=== PATIENT | male | born 1935 | race Caucasian/White ===

== ENCOUNTER → 2023-07-06 | Outpatient (REF) | payer MEDICARE, OTHER, SELFPAY ==
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
[2023-07-06 06:30] LABS: Absolute Lymphocyte Count 1.61 X10^3/uL (0.83-4.51); Absolute Neutrophil Count 4.6 X10^3/uL (2.0-7.7); Basophil# 0.02 X10^3/uL; Basophil% 0.3 % (0-1); Eosinophil# 0.42 X10^3/uL; Eosinophils% 5.6 % (0-5); Hematocrit 33.9 % (40-54); Hemoglobin 10.8 g/dL (13.0-16.5); Lymphocyte # 1.61 X10^3/ul (0.83-4.51); Lymphocyte % 21.4 % (19-41); Mean Corp Hgb Conc 31.9 g/dL (32-36); Mean Corpuscular Hgb 32.4 pg (27.0-32.0); Mean Corpuscular Volume 101.8 fL (80-94); Mean Platelet Vol. 9.9 fl (6.2-12.0); Monocyte# 0.83 X10^3/uL; NRBC Flagged by Analyzer 0 % (0-5); Neutrophil # 4.63 X10^3/uL (2.7-7.7); Neutrophil % 61.6 % (47-70); Platelet Count 241 K/mm3 (150-450); RBC Distribution Width CV 13.3 % (11.6-14.6); RBC Distribution Width SD 50.4 fl (35.1-43.9); Red Blood Count 3.33 M/mm3 (4.6-6.2); White Blood Count 7.5 K/mm3 (4.4-11.0)
[2023-07-06 07:08] LABS: Anion Gap 1 (5-15); BUN 43 mg/dL (7-18); BUN/Creat Ratio 31.4 RATIO (10-20); Calcium,Total 9.7 mg/dL (8.5-10.1); Chloride 107 mmol/L (98-107); Creatinine, Serum 1.37 mg/dL (0.70-1.30); EST Glomerular Filtration Rate 52 mL/min (>60); Est Glom Filt Rate - Afr Amer 63 mL/min (>60); Glucose 130 mg/dL (74-106); Potassium 4.2 mmol/L (3.5-5.1); Sodium Level 137 mmol/L (136-145)
== END ==
LOC: OLS.WHLTSB 05:54
PROVIDERS: PCP Family Medicine; Visit Provider Internal Medicine
DX: S22.41XD Multiple fractures of ribs, right side, subsequent encounter for fracture with routine healing (principal); H61.22 Impacted cerumen, left ear; J91.8 Pleural effusion in other conditions classified elsewhere
CPT/HCPCS: 36415; 80048; 85025

== ENCOUNTER → 2023-07-13 | Outpatient (REF) | payer MEDICARE, OTHER, SELFPAY ==
--- OUTSIDE RECORDS SUMMARY | 2023-07-13 04:25 | XMS RPT_ITS | CCD ---
Author Name Unknown Address [address] [place] [address] Organization [facility] Care Team Providers Care Service Control Operator Name Role Phone Unavailable Primary Care Provider Unavailabl e Results Test Name Value Interpretation Reference Range Facil ity Encounters Encounter Date Encounter Type Care Provider Facility Start: 09-23-2021 End: 09-23-2021 Subsequent hospital visit by physician Cindy Gomez DO Work Phone: [facility] Payers Date Payer Category Payer Unknown MMO MMO TRADITIO NAL [id number] 1999-Present [phone] [address] [place] [address] Indemnity [id number] Social History Date Type Detail Facility Tobacco smoking stat [facility] Tobacco smoking consumption unknown [facility] Start: 1935 Sex Assigned At Not on file C [facility] Clinical Note 09-23-2021 Note Date & Type [...] Metropolol, Pantoprazole, Pioglitazone, Plavix, Glyburide, Cyclobenzapr, Saw [place], CoQ10 Demographics: Age: 85Y Gender: Male Primary Language: Mauritian Preferred Language: Mauritian Screening for COVID-19 Does the patient/client present [...] with anyone with a confirmed or suspected [facility] PATIENT NAME: SANTIAGO PARRA [address] Post MEDICAL REC #: [id number] [place] [address] ADMIT DATE: SERVICE DATE: 09/23/21 Occupational Therapy [...] to get himself light meals, using the bond underwriter, setting the table while assist still needed [...] work currently if asked/requested; he plays the [employer] and takes lessons weekly, he has shown his [employer] tractor for years while last time at the [facility] in 2018 or 2019 (not sure of year) Driving History: Driving for: 70 years. 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 History of Accidents: Patient [...] Pain: Patient currently without complaints of pain. [facility] PATIENT NAME: SANTIAGO PARRA [address] Post MEDICAL REC #: [id number] (more content not included)... [facility] [place] Summary Purpose Family History No Family History [...] or prosecute any alcohol or drug abuse patient.[facility] (unrecognized sect ion and content) No [...] BE BASED ON THE PRIMARY CLINICAL RECORDS. [employer] [facility]. provides no warranty or guarantee of the accuracy or completeness of information in this document.
[2023-07-13 06:19] LABS: Absolute Lymphocyte Count 1.47 X10^3/uL (0.83-4.51); Absolute Neutrophil Count 2.9 X10^3/uL (2.0-7.7); Basophil# 0.02 X10^3/uL; Basophil% 0.4 % (0-1); Hematocrit 29.9 % (40-54); Hemoglobin 9.3 g/dL (13.0-16.5); Lymphocyte # 1.47 X10^3/ul (0.83-4.51); Lymphocyte % 26.5 % (19-41); Mean Corp Hgb Conc 31.1 g/dL (32-36); Mean Corpuscular Hgb 31.8 pg (27.0-32.0); Mean Corpuscular Volume 102.4 fL (80-94); Mean Platelet Vol. 10.1 fl (6.2-12.0); Monocyte# 0.65 X10^3/uL; Monocyte% 11.7 % (0-10); NRBC Flagged by Analyzer 0 % (0-5); Neutrophil % 52.2 % (47-70); Platelet Count 222 K/mm3 (150-450); RBC Distribution Width SD 48.7 fl (35.1-43.9); Red Blood Count 2.92 M/mm3 (4.6-6.2); White Blood Count 5.6 K/mm3 (4.4-11.0)
[2023-07-13 06:36] LABS: Anion Gap 3 (5-15); BUN 50 mg/dL (7-18); Calcium,Total 9.3 mg/dL (8.5-10.1); Chloride 108 mmol/L (98-107); Creatinine, Serum 1.39 mg/dL (0.70-1.30); EST Glomerular Filtration Rate 51 mL/min (>60); Est Glom Filt Rate - Afr Amer 62 mL/min (>60); Glucose 180 mg/dL (74-106); Potassium 4.4 mmol/L (3.5-5.1); Sodium Level 140 mmol/L (136-145)
== END ==
LOC: OLS.WHLTSB 05:00
PROVIDERS: PCP Family Medicine; Visit Provider Internal Medicine
DX: I10 Essential (primary) hypertension (principal); J91.8 Pleural effusion in other conditions classified elsewhere
CPT/HCPCS: 36415; 80048; 85025

== ENCOUNTER → 2023-07-18 | Outpatient (REF) | payer MEDICARE, OTHER, SELFPAY ==
--- OUTSIDE RECORDS SUMMARY | 2023-07-18 03:46 | XMS RPT_ITS | CCD ---
Author Name Unknown Address [address] [place] [address] Organization [facility] Care Team Providers Care Glove Wrapper Name Role Phone Unavailable Primary Care Provider Unavailabl e Results Test Name Value Interpretation Reference Range Facil ity Encounters Encounter Date Encounter Type Care Provider Facility Start: 09-23-2021 End: 09-23-2021 Subsequent hospital visit by physician Cindy Gomez DO Work Phone: [facility] Payers Date Payer Category Payer Unknown MMO MMO TRADITIO NAL [id number] 1999-Present [phone] [address] [place] [address] Indemnity [id number] Social History Date Type Detail Facility Tobacco smoking stat [facility] Tobacco smoking consumption unknown [facility] Start: 1935 Sex Assigned At Not on file C [facility] Clinical Note 09-23-2021 Note Date & [...] Metropolol, Pantoprazole, Pioglitazone, Plavix, Glyburide, Cyclobenzapr, Saw [place], CoQ10 Demographics: Age: 85Y Gender: Male Primary Language: Hungarian Preferred Language: Hungarian Screening for COVID-19 Does the patient/client present [...] with anyone with a confirmed or suspected [facility] PATIENT NAME: SANTIAGO PARRA [address] Post MEDICAL REC #: [id number] [place] [address] ADMIT DATE: SERVICE DATE: 09/23/21 Occupational Therapy [...] to get himself light meals, using the cheese tester, setting the table while assist still needed [...] work currently if asked/requested; he plays the [employer] and takes lessons weekly, he has shown his Scott [employer] tractor for years while last time at the [facility] in 2018 or 2019 (not sure of year) Driving History: Driving for: 70 years. 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 History of Accidents: Patient [...] Pain: Patient currently without complaints of pain. [facility] PATIENT NAME: SANTIAGO PARRA [address] Post MEDICAL REC #: [id number] (more content not included)... [facility] [place] Summary Purpose Family History No Family History [...] or prosecute any alcohol or drug abuse patient.[facility] (unrecognized sect ion and content) No Status [...] BE BASED ON THE PRIMARY CLINICAL RECORDS. [employer] [facility]. provides no warranty or guarantee of the accuracy or completeness of information in this document.
[2023-07-18 07:03] LABS: Absolute Lymphocyte Count 1.65 X10^3/uL (0.83-4.51); Absolute Neutrophil Count 4.7 X10^3/uL (2.0-7.7); Basophil# 0.02 X10^3/uL; Basophil% 0.3 % (0-1); Eosinophils% 6.6 % (0-5); Hematocrit 31.4 % (40-54); Hemoglobin 9.9 g/dL (13.0-16.5); Lymphocyte # 1.65 X10^3/ul (0.83-4.51); Lymphocyte % 21.7 % (19-41); Mean Corp Hgb Conc 31.5 g/dL (32-36); Mean Corpuscular Hgb 31.7 pg (27.0-32.0); Mean Corpuscular Volume 100.6 fL (80-94); Mean Platelet Vol. 9.7 fl (6.2-12.0); Monocyte# 0.74 X10^3/uL; Monocyte% 9.7 % (0-10); NRBC Flagged by Analyzer 0 % (0-5); Neutrophil # 4.68 X10^3/uL (2.7-7.7); Neutrophil % 61.3 % (47-70); Platelet Count 222 K/mm3 (150-450); RBC Distribution Width CV 13.1 % (11.6-14.6); RBC Distribution Width SD 48.5 fl (35.1-43.9); Red Blood Count 3.12 M/mm3 (4.6-6.2); White Blood Count 7.6 K/mm3 (4.4-11.0)
[2023-07-18 07:12] LABS: Anion Gap 4 (5-15); BUN 41 mg/dL (7-18); BUN/Creat Ratio 25.8 RATIO (10-20); Calcium,Total 9.2 mg/dL (8.5-10.1); Chloride 108 mmol/L (98-107); Creatinine, Serum 1.59 mg/dL (0.70-1.30); EST Glomerular Filtration Rate 44 mL/min (>60); Est Glom Filt Rate - Afr Amer 53 mL/min (>60); Glucose 178 mg/dL (74-106); Potassium 4.1 mmol/L (3.5-5.1); Sodium Level 139 mmol/L (136-145)
== END ==
LOC: OLS.WHLTSB 04:00
PROVIDERS: PCP Family Medicine; Visit Provider Internal Medicine
DX: D64.9 Anemia, unspecified (principal)
CPT/HCPCS: 36415; 80048; 85025

== ENCOUNTER → 2023-07-20 | Outpatient (REF) | payer MEDICARE, OTHER, SELFPAY ==
--- OUTSIDE RECORDS SUMMARY | 2023-07-20 04:46 | XMS RPT_ITS | CCD ---
Author Name Unknown Address [address] [place] [address] Organization [facility] Care Team Providers Care Metal Reed Tuner Name Role Phone Unavailable Primary Care Provider Unavailabl e Results Test Name Value Interpretation Reference Range Facil ity Encounters Encounter Date Encounter Type Care Provider Facility Start: 09-23-2021 End: 09-23-2021 Subsequent hospital visit by physician Cindy Gomez DO Work Phone: [facility] Payers Date Payer Category Payer Unknown MMO MMO TRADITIO NAL [id number] 1999-Present [phone] [address] [place] [address] Indemnity [id number] Social History Date Type Detail Facility Tobacco smoking stat [facility] Tobacco smoking consumption unknown [facility] Start: 1935 Sex Assigned At Not on file C [facility] Clinical Note 09-23-2021 Note Date & [...] Metropolol, Pantoprazole, Pioglitazone, Plavix, Glyburide, Cyclobenzapr, Saw [place], CoQ10 Demographics: Age: 85Y Gender: Male Primary Language: Libyan Preferred Language: Libyan Screening for COVID-19 Does the patient/client present [...] with anyone with a confirmed or suspected [facility] PATIENT NAME: SANTIAGO PARRA [address] Post MEDICAL REC #: [id number] [place] [address] ADMIT DATE: SERVICE DATE: 09/23/21 Occupational Therapy [...] to get himself light meals, using the rock mason apprentice, setting the table while assist still needed [...] work currently if asked/requested; he plays the [employer] and takes lessons weekly, he has shown his [employer] tractor for years [facility] (not sure of year) Driving History: Driving for: 70 years. Time Since Last Driven: he indicated he drove earlier this week however his daughters indicated that he had not driven since they have been here (for just over 1 month) Gum Maker's License Expiration Date: 10/13/21 State of: [place]; no restrictions indicated Type of Vehicle: 2016 [employer] Type of Insurance: Central (?) Type of Driving Anticipated: Local Daytime Hightway Reason for Driving is: [place] Social/Leisure Home management He indicated that he would drive to grocery [employer], [employer], [employer], [employer] lessons, doctor appointments, and to [place] to see family/friends. History of Accidents: Patient [...] Pain: Patient currently without complaints of pain. [facility] PATIENT NAME: SANTIAGO PARRA [address] Post MEDICAL REC #: [id number] (more content not included)... [facility] [place] Summary Purpose Family History No Family History [...] or prosecute any alcohol or drug abuse patient.[facility] (unrecognized sect ion and content) No [...] BE BASED ON THE PRIMARY CLINICAL RECORDS. [employer] [facility]. provides no warranty or guarantee of the accuracy or completeness of information in this document.
[2023-07-20 08:34] LABS: Absolute Lymphocyte Count 1.32 X10^3/uL (0.83-4.51); Absolute Neutrophil Count 3.4 X10^3/uL (2.0-7.7); Basophil# 0.02 X10^3/uL; Basophil% 0.3 % (0-1); Eosinophils% 8.5 % (0-5); Hematocrit 31.2 % (40-54); Hemoglobin 9.9 g/dL (13.0-16.5); Lymphocyte # 1.32 X10^3/ul (0.83-4.51); Lymphocyte % 22.4 % (19-41); Mean Corp Hgb Conc 31.7 g/dL (32-36); Mean Corpuscular Hgb 31.7 pg (27.0-32.0); Mean Platelet Vol. 10.1 fl (6.2-12.0); Monocyte# 0.62 X10^3/uL; Monocyte% 10.5 % (0-10); NRBC Flagged by Analyzer 0 % (0-5); Neutrophil # 3.43 X10^3/uL (2.7-7.7); Neutrophil % 58.1 % (47-70); Platelet Count 237 K/mm3 (150-450); RBC Distribution Width CV 12.9 % (11.6-14.6); RBC Distribution Width SD 47.7 fl (35.1-43.9); Red Blood Count 3.12 M/mm3 (4.6-6.2); White Blood Count 5.9 K/mm3 (4.4-11.0)
[2023-07-20 10:09] LABS: Anion Gap 5 (5-15); BUN 44 mg/dL (7-18); BUN/Creat Ratio 31.9 RATIO (10-20); Calcium,Total 8.9 mg/dL (8.5-10.1); Chloride 106 mmol/L (98-107); Creatinine, Serum 1.38 mg/dL (0.70-1.30); EST Glomerular Filtration Rate 52 mL/min (>60); Est Glom Filt Rate - Afr Amer 62 mL/min (>60); Glucose 192 mg/dL (74-106); Potassium 3.8 mmol/L (3.5-5.1); Sodium Level 136 mmol/L (136-145)
== END ==
LOC: OLS.WHLTSB 04:00
PROVIDERS: PCP Family Medicine; Referring Provider Internal Medicine; Visit Provider Internal Medicine
DX: I10 Essential (primary) hypertension (principal)
CPT/HCPCS: 36415; 80048; 85025

== ENCOUNTER → 2023-07-27 | Outpatient (REF) | payer MEDICARE, OTHER, SELFPAY ==
--- OUTSIDE RECORDS SUMMARY | 2023-07-27 08:57 | XMS RPT_ITS | CCD ---
Author Name Unknown Address [address] [place] [address] Organization [facility] Care Team Providers Care Account Executive Software Sales Name Role Phone Unavailable Primary Care Provider Unavailabl e Results Test Name Value Interpretation Reference Range Facil ity Encounters Encounter Date Encounter Type Care Provider Facility Start: 09-23-2021 End: 09-23-2021 Subsequent hospital visit by physician Cindy Gomez DO Work Phone: [facility] Payers Date Payer Category Payer Unknown MMO MMO TRADITIO NAL [id number] 1999-Present [phone] [address] [place] [address] Indemnity [id number] Social History Date Type Detail Facility Tobacco smoking stat [facility] Tobacco smoking consumption unknown [facility] Start: 1935 Sex Assigned At Not on file C [facility] Clinical Note 09-23-2021 Note Date & [...] Metropolol, Pantoprazole, Pioglitazone, Plavix, Glyburide, Cyclobenzapr, Saw [place], CoQ10 Demographics: Age: 85Y Gender: Male Primary Language: Palauan Preferred Language: Palauan Screening for COVID-19 Does the patient/client present [...] with anyone with a confirmed or suspected [facility] PATIENT NAME: SANTIAGO PARRA [address] Post MEDICAL REC #: [id number] [place] [address] ADMIT DATE: SERVICE DATE: 09/23/21 Occupational Therapy [...] to get himself light meals, using the chair mender, setting the table while assist still needed [...] work currently if asked/requested; he plays the [employer] and takes lessons weekly, he has shown his Scott [employer] tractor for years while last time at the [facility] in 2018 or 2019 (not sure of year) Driving History: Driving for: 70 years. Time Since Last Driven: he indicated he drove earlier this week however his daughters indicated that he had not driven since they have been here (for just over 1 month) Tobacco Educator's License Expiration Date: 10/13/21 State of: [place]; no restrictions indicated Type of Vehicle: 2016 [place] Type of Insurance: Central (?) Type of Driving Anticipated: Local Daytime [place]ightway Reason for Driving is: [place] Social/Leisure Home management He indicated that he would drive to grocery [employer], [employer], [employer], [employer] lessons, doctor appointments, and to [place] to see family/friends. History of Accidents: Patient [...] Pain: Patient currently without complaints of pain. [facility] PATIENT NAME: SANTIAGO PARRA [address] Post MEDICAL REC #: [id number] (more content not included)... [facility] [place] Summary Purpose Family History No Family History [...] or prosecute any alcohol or drug abuse patient.[facility] (unrecognized sect ion and content) No Status [...] BE BASED ON THE PRIMARY CLINICAL RECORDS. [employer] [facility]. provides no warranty or guarantee of the accuracy or completeness of information in this document.
[2023-07-27 09:06] LABS: Absolute Lymphocyte Count 1.51 X10^3/uL (0.83-4.51); Absolute Neutrophil Count 3.7 X10^3/uL (2.0-7.7); Basophil# 0.02 X10^3/uL; Basophil% 0.3 % (0-1); Eosinophil# 0.43 X10^3/uL; Eosinophils% 6.9 % (0-5); Hematocrit 30.7 % (40-54); Hemoglobin 9.8 g/dL (13.0-16.5); Lymphocyte # 1.51 X10^3/ul (0.83-4.51); Lymphocyte % 24.2 % (19-41); Mean Corp Hgb Conc 31.9 g/dL (32-36); Mean Corpuscular Hgb 31.9 pg (27.0-32.0); Mean Platelet Vol. 10.1 fl (6.2-12.0); Monocyte# 0.57 X10^3/uL; Monocyte% 9.1 % (0-10); NRBC Flagged by Analyzer 0 % (0-5); Neutrophil # 3.69 X10^3/uL (2.7-7.7); Neutrophil % 59.3 % (47-70); Platelet Count 241 K/mm3 (150-450); RBC Distribution Width CV 12.7 % (11.6-14.6); RBC Distribution Width SD 46.9 fl (35.1-43.9); Red Blood Count 3.07 M/mm3 (4.6-6.2); White Blood Count 6.2 K/mm3 (4.4-11.0)
[2023-07-27 09:20] LABS: Anion Gap 9 (5-15); BUN 41 mg/dL (7-18); BUN/Creat Ratio 28.5 RATIO (10-20); Calcium,Total 9.2 mg/dL (8.5-10.1); Chloride 106 mmol/L (98-107); Creatinine, Serum 1.44 mg/dL (0.70-1.30); EST Glomerular Filtration Rate 49 mL/min (>60); Est Glom Filt Rate - Afr Amer 59 mL/min (>60); Glucose 249 mg/dL (74-106); Potassium 4.2 mmol/L (3.5-5.1); Sodium Level 142 mmol/L (136-145)
== END ==
LOC: OLS.WHLTSB 05:00
PROVIDERS: PCP Family Medicine; Visit Provider Internal Medicine
DX: I10 Essential (primary) hypertension (principal)
CPT/HCPCS: 36415; 80048; 85025

== ENCOUNTER → 2023-08-01 | Outpatient (REF) | payer MEDICARE, OTHER, SELFPAY ==
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
[2023-08-01 08:10] LABS: Absolute Lymphocyte Count 1.59 X10^3/uL (0.83-4.51); Absolute Neutrophil Count 4.7 X10^3/uL (2.0-7.7); Basophil# 0.03 X10^3/uL; Basophil% 0.4 % (0-1); Eosinophil# 0.51 X10^3/uL; Eosinophils% 6.8 % (0-5); Hematocrit 34.4 % (40-54); Hemoglobin 10.9 g/dL (13.0-16.5); Lymphocyte # 1.59 X10^3/ul (0.83-4.51); Lymphocyte % 21.1 % (19-41); Mean Corp Hgb Conc 31.7 g/dL (32-36); Mean Corpuscular Hgb 31.1 pg (27.0-32.0); Mean Corpuscular Volume 98.3 fL (80-94); Mean Platelet Vol. 9.9 fl (6.2-12.0); Monocyte# 0.68 X10^3/uL; NRBC Flagged by Analyzer 0 % (0-5); Neutrophil # 4.72 X10^3/uL (2.7-7.7); Neutrophil % 62.4 % (47-70); Platelet Count 251 K/mm3 (150-450); RBC Distribution Width CV 12.6 % (11.6-14.6); RBC Distribution Width SD 45.1 fl (35.1-43.9); White Blood Count 7.6 K/mm3 (4.4-11.0)
[2023-08-01 08:29] LABS: Anion Gap 5 (5-15); BUN 42 mg/dL (7-18); Calcium,Total 9.6 mg/dL (8.5-10.1); Chloride 107 mmol/L (98-107); Creatinine, Serum 1.45 mg/dL (0.70-1.30); EST Glomerular Filtration Rate 49 mL/min (>60); Est Glom Filt Rate - Afr Amer 59 mL/min (>60); Glucose 290 mg/dL (74-106); Potassium 4.4 mmol/L (3.5-5.1); Sodium Level 138 mmol/L (136-145)
== END ==
LOC: OLS.WHLTSB 05:00
PROVIDERS: PCP Family Medicine; Visit Provider Internal Medicine
DX: H61.122 Hematoma of pinna, left ear (principal); J91.8 Pleural effusion in other conditions classified elsewhere; D63.1 Anemia in chronic kidney disease
CPT/HCPCS: 36415; 80048; 85025

== ENCOUNTER 2023-08-03 03:02 | Emergency (ER) | payer MEDICARE, OTHER, SELFPAY ==
[2023-08-03 03:04] VITALS: BP 126/78; PULSE 76; RESP 19; TEMP 38.3; O2SAT 96; BMI 19.9
--- NOTE | 2023-08-03 03:54 | RAD_ITS ---
INDICATION: fever EXAMINATION/TECHNIQUE: X-RAY - XR Chest 1 View COMPARISON: 05/23/2023. FINDINGS: LINES/DEVICES: None. LUNGS: No consolidation or evidence of an effusion. No evidence of edema or a pneumothorax. MEDIASTINUM AND CARDIOVASCULAR STRUCTURES: Stable mild cardiomegaly. Mediastinum is unremarkable. BONES AND SOFT TISSUES: No acute abnormality. RAD/Chest 1 View (Portable) IMPRESSION: No evidence of acute cardiopulmonary disease. Electronically Signed: Alcon Borja DO at 4:34 EST ,
[2023-08-03 04:10] LABS: Bacteria 0 SEEN /hpf (None Seen); Mucous, Urine 0 SEEN /hpf (<or=2+); Red Blood Cells-Urine 0 SEEN /hpf (0-5); Squamous Epithelial Cells - UA 0 SEEN /hpf (0-5); White Blood Cells 0 SEEN /hpf (0-5)
[2023-08-03 04:11] LABS: Color, Urine Yellow (Yellow); Glucose, Dipstick 250 mg/dl (Normal); Ketone-Dipstick Negative (Negative); Leukocyte Esterase-Dipstick Negative /ul (Negative); Nitrite-Dipstick Negative (Negative); Occult Blood-Urine 10 /ul (Negative); Protein-Dipstick 100 mg/dl (Negative); Specific Gravity, Urine 1.015 (1.002-1.030); Urine Bilirubin Dipstick Negative (Negative); Urine Clarity Clear (Clear); Urine Urobilinogen Normal (Normal); Urine pH 6.5 (5.0 - 8.0)
[2023-08-03] MEDS: Acetaminophen 500 MG Tablet 1000 MG PO (04:11)
--- OUTSIDE RECORDS SUMMARY | 2023-08-03 04:54 | XMS RPT_ITS | CCD ---
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 Name Role Phone Unavailable Primary Care Provider Unavailabl e Results Test Name Value Interpretation Reference Range Facil ity Encounters Encounter Date Encounter Type Care Provider Facility Start: 09-23-2021 End: 09-23-2021 Subsequent hospital visit by physician Cindy Gomez DO Work Phone: [facility] Payers Date Payer Category Payer Unknown MMO MMO TRADITIO NAL [id number] 1997-Present [phone] [address] [place] [address] Indemnity [id number] Social History Date Type Detail Facility Tobacco smoking stat [facility] Tobacco smoking consumption unknown [facility] Start: 1935 Sex Assigned At Not on file C [facility] Clinical Note 09-23-2021 Note Date & Type [...] Metropolol, Pantoprazole, Pioglitazone, Plavix, Glyburide, Cyclobenzapr, [place], CoQ10 Demographics: Age: 85Y Gender: Male Primary Language: Estonian Preferred Language: Estonian Screening for COVID-19 Does the patient/client present [...] with anyone with a confirmed or suspected PATIENT NAME: SANTIAGO PARRA [address] Post MEDICAL REC #: [id number] [place] [address] ADMIT DATE: SERVICE DATE: 09/23/21 Occupational Therapy [...] to get himself light meals, using the first leveler, setting the table while assist still needed [...] work currently if asked/requested; he plays the [employer] and takes lessons weekly, he has shown his [employer] tractor for years while last time at the [facility] in 2018 or 2019 (not sure of year) Driving History: Driving for: 70 years. 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 History of Accidents: Patient [...] Pain: Patient currently without complaints of pain. PATIENT NAME: SANTIAGO PARRA [address] Post MEDICAL REC #: [id number] (more content not included)... [facility] Summary Purpose Family History No Family History [...] or prosecute any alcohol or drug abuse patient.[facility] (unrecognized sect ion and content) No [...] BE BASED ON THE PRIMARY CLINICAL RECORDS. [employer] [facility]. provides no warranty or guarantee of the accuracy or completeness of information in this document.
[2023-08-03 05:03] VITALS: TEMP 37.1
--- NOTE | 2023-08-03 05:12 | EDS_ITS ---
HPI History of Present Illness Chief Complaint: Complaint Informant: EMS and SNF Narrative Narrative: Patient is an 87-year-old male from [place] with past medical history of dementia hypertension and chronic kidney disease. retirement states that zeferino méndez was recently visited by family who tested positive for COVID and this evening he spiked a fever up to 101. Secondary to this temperature he was sent in for evaluation. Upon arrival to the ER the patient reports that he feels fine and he has no complaints. His history however needs to be scrutinized based on his dementia [facility] Medical History (Updated 08/03/23 @ 05:[address] Colt Peraza, DO) Abnormal stress echo Acquired hypothyroidism Anemia, chronic renal failure Aortic stenosis Atherosclerosis of [place] coronary artery of [place] heart without angina pectoris BPH (benign prostatic hyperplasia) CAD (coronary artery disease) Chronic kidney disease, stage 3 Chronic renal failure, stage 3a Closed head injury Declining functional status Dementia, unspecified, with behavioral disturbance Depression DM II (diabetes mellitus, type II), controlled Esophageal ulcer Essential (primary) hypertension Gastric ulcer GERD (gastroesophageal reflux disease) Hearing loss, left Hearing loss, right Left atrial enlargement Left bundle branch block Metacarpal bone fracture Mixed hyperlipidemia Moderate left ventricular hypertrophy Multiple rib fractures Osteoarthritis Presbycusis of both ears Presence of stent in coronary artery (~01/18/18) Recurrent falls Syncope and collapse Upper gastrointestinal bleed (~01/2016) Venous insufficiency Wears hearing aid in both ears Home Medications pioglitazone 30 mg tablet 30 mg PO DAILY diabetes 02/05/16 [History Last Taken 05/23/23] aspirin 81 mg tablet,delayed release (Adult Low Dose Aspirin) 81 mg PO DAILY heart 11/29/17 [History Last Taken 05/26/23] ascorbic acid (vitamin C) 500 mg capsule 500 mg PO DAILY supplement 10/09/18 [History Last Taken 05/23/23] coenzyme Q10 200 mg capsule (Co Q-10) 200 mg PO DAILY supplement 07/23/21 [History Last Taken 05/23/23] atorvastatin 20 mg tablet 20 mg PO QHS cholesterol 10/12/21 [History Last Taken 05/25/23] furosemide 20 mg tablet (Lasix) 20 mg PO DAILY diuretic 10/12/21 [History Last Taken 05/26/23] quetiapine 25 mg tablet 25 mg PO 1999 Mood and sleep #1 TAB 10/22/21 [Rx Last Taken 05/22/23] cholecalciferol (vitamin D3) 125 mcg (5,000 unit) capsule 125 mcg PO DAILY Supplement 11/30/21 [History Last Taken 05/23/23] acetaminophen 500 mg tablet 1,000 mg PO BID PAIN/FEVER 01/25/22 [History Last Taken 05/23/23] pantoprazole 20 mg tablet,delayed release 20 mg PO BID GERD #60 tabs 01/25/22 [Rx Last Taken 05/26/23] sennosides 8.6 mg-docusate sodium 50 mg tablet (Stool Softener-Stimulant Laxative) 1 tab PO DAILY Constipation 01/25/22 [History Last Taken 05/22/23] sertraline 25 mg tablet 25 mg PO DAILY Mood 11/16/22 [History Last Taken 05/26/23] vitamin B complex (B Complex-Vitamin B12 tablet) 1 tab PO DAILY Supplement 11/16/22 [History Last Taken 05/23/23] liothyronine 5 mcg tablet 5 mcg PO DAILY Hypothyroidism 05/23/23 [History Last Taken 05/26/23] bisacodyl 10 mg rectal suppository 10 mg NJ X1 PRN Constipation #1 ea 06/07/23 [Rx Last Taken Unknown] finasteride 5 mg tablet 5 mg PO DAILY #1 TAB 06/07/23 [Rx Last Taken Unknown] glimepiride 2 mg tablet 2 mg PO BREAKFAST #1 TAB 06/07/23 [Rx Last Taken Unknown] insulin detemir U-100 100 unit/mL (3 mL) subcutaneous pen (Levemir FlexPen) 6 unit (0.06 mL) subcut QHS #15 mL 06/07/23 [Rx Last Taken Unknown] insulin lispro 100 unit/mL subcutaneous pen (Humalog KwikPen (U-100) Insulin) See Protocol subcut TIDAC #1 pen 06/07/23 [Rx Last Taken Unknown] magnesium hydroxide 400 mg/5 mL oral suspension 30 ml PO X1 PRN Constipation #1 mL 06/07/23 [Rx Last Taken Unknown] menthol 0.44 %-zinc oxide 20.6 % topical ointment (Calmoseptine) 1 applic topical BID #113 grams 06/07/23 [Rx Last Taken Unknown] nutrition tx glu intol,lac-free,soy-fiber 0.06 gram-1.2 kcal/mL liquid (Glucerna 1.2 Mihir) 120 ml PO 4X/DAY #1 mL 06/07/23 [Rx Last Taken Unknown] nystatin 100,000 unit/gram topical powder (Nyamyc) 1 applic topical BID #1 g 06/07/23 [Rx Last Taken Unknown] Allergy/AdvReac Type Severity Reaction Status Date / Time No Known Allergies Allergy Verified 05/23/23 14:49 Family History (Updated 05/26/23 @ 11:[address] Kimberlee Schulz MD) Mother Hypertension Diabetes Macular degeneration Father Cancer throat Surgical History (Updated 05/26/23 @ 11:[address] Kimberlee Schulz MD) H/O shoulder surgery History of left heart catheterization (12/29/17) History of tonsillectomy Presence of coronary angioplasty implant and graft (~01/18/18) Social History (Updated 05/26/23 @ 11:[address] 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 Smoking Status: Never smoker alcohol intake: never substance use type: does not use caffeine: Yes Type: coffee Number of servings: 2 ROS ROS ED ROS Narrative Please note review of systems may be unreliable secondary to history of dementia Constitutional Constitutional ED: Denies chills or fever(s) ENT ENT ED: Denies rhinorrhea or sore throat Cardiovascular Cardiovascular: Denies chest pain Respiratory/Chest Respiratory/Chest: Denies cough or dyspnea Gastrointestinal Gastrointestinal: Denies abdominal pain, diarrhea, nausea or vomiting Genitourinary Genitourinary ED: Denies dysuria Musculoskeletal Musculoskeletal: Denies myalgias Integumentary Denies rash Neurologic Neurologic: Denies headache(s) Hematologic/Lymphatic Hematologic/Lymphatic: Denies easy bleeding or easy bruising EXAM Physical Exam Const Vital Signs: 08/03/23 03:04 Temperature 101 F H Temperature Source Oral Pulse Rate 76 Respiratory Rate 19 H Blood Pressure 126/78 H Blood Pressure Mean 94 Pulse Ox 96 Oxygen Delivery Method Room Air Positive well nourished and well developed General Appearance ED: well developed; Negative for pallor HEENT Reports dry mucous membranes HEENT Narrative: No tongue or lip swelling no oral lesions no airway edema or compromise No signs of infection noted in the posterior pharynx Mouth ED: Yes dry mucous membranes Mouth: dry mucous membranes Eyes PERRL and EOMs intact bilaterally General Eye ED: Negative for scleral icterus Neck supple Neck Narrative: No nuchal rigidity or meningeal signs noted Chest Wall palpation of chest normal Resp normal respiratory effort and clear to auscultation bilaterally Resp Narrative: Breath sounds are diminished throughout but overall clear to auscultation without signs of respiratory distress Cardio regular rate and regular rhythm GI normal to inspection, nondistended, normoactive bowel sounds, non-tender, non- distended and no masses GI Narrative: No voluntary guarding or rigidity Auscultation: normoactive bowel sounds Palpation: soft Back/Spine no CVA tenderness Extremity normal to inspection Neuro CN's II-XII intact bilaterally Neuro Narrative: Patient is at his baseline mental status without focal neurologic deficit noted. Patient is sleeping upon arrival to the ER but does awaken to voice GCS of 14 Sensorium / Orientation: orientation impaired Psych Psych Narrative: Patient has a flat affect Skin no rashes or lesions noted General Skin Exam: Negative for jaundice or pallor MDM MDM MDM Narrative Medical decision making narrative: Patient arrived to the ER febrile but otherwise with stable vitals. He reported that he felt fine but he has dementia and does not offer a proper history. With his temperature differential diagnosis is for urinary tract infection versus pneumonia versus COVID versus influenza versus RSV. As his blood pressure and heart rate are stable and he has no signs of respiratory distress I do not feel the need for blood work. A chest x-ray was obtained to rule out pneumonia which was normal and urine sample did not show any sign of UTI. Her COVID influenza and RSV swab was negative and after he was treated with Tylenol temperature resolved and his vitals remained stable. At this time as patient is at his baseline mental status without any type of abdominal pain or signs of soft tissue skin infection or meningeal signs I do not feel there is need for further workup. Patient most likely has COVID based on his recent exposure but is just not had time for the test to cross over and become positive. As he is not showing signs of septicemia or derangement to his blood pressure or requiring supplemental oxygen I do not feel there is need for further evaluation in the ER and is otherwise safe for discharge Lab Data Attestation: I reviewed the patient's lab results. Labs: Laboratory Results - last 24 hr 08/03/23 04:02 Urine Color Yellow Urine Clarity Clear Urine pH 6.5 Ur Specific Lutz 1.015 Urine Protein 100 H Urine Glucose (UA) 250 H Urine Ketones Negative Urine Occult Blood 10 H Urine Nitrite Negative Urine Bilirubin Negative Urine Urobilinogen Normal Ur Leukocyte Esterase Negative Urine RBC 0 SEEN Urine WBC 0 SEEN Ur Squamous Epith Cells 0 SEEN Urine Bacteria 0 SEEN Urine Mucus 0 SEEN Radiography Diagnostic Testing: Clinical Impression(s) from Imaging Studies Chest X-Ray 08/03/23 03:54 IMPRESSION: No evidence of acute cardiopulmonary disease. Electronically Signed: Alcon Borja DO at 4:34 EST , Chest x-ray as interpreted by the emergency medicine physician reveals no acute infiltrate pneumothorax or pleural effusion Discharge Plan Triage Chief Complaint: Complaint ED Provider: Colt Peraza Dx/Rx/DC Orders Clinical Impression: Pyrexia, Dementia, Chronic kidney disease, Hypertension Instructions: ED FUO Adult, ED Fever Control (Adult) Prescriptions: No Action aspirin [Adult Low Dose Aspirin] 81 mg tablet,delayed release (DR/EC) 81 mg PO DAILY ascorbic acid (vitamin C) 500 mg capsule 500 mg PO DAILY coenzyme Q10 [Co Q-10] 200 mg capsule 200 mg PO DAILY sennosides-docusate sodium [Stool Softener-Stimulant Laxat] 8.6-50 mg tablet 1 tab PO DAILY pantoprazole 20 mg tablet,delayed release (DR/EC) 20 mg PO BID Qty: 60 11RF sertraline 25 mg tablet 25 mg PO DAILY vitamin B complex [B Complex-Vitamin B12] Tablet 1 tab PO DAILY pioglitazone 30 MG tablet 30 mg PO DAILY Patient Comments: atorvastatin 20 mg tablet 20 mg PO QHS furosemide [Lasix] 20 mg tablet 20 mg PO DAILY quetiapine 25 mg Tablet 25 mg PO 1999 Qty: 1 0RF cholecalciferol (vitamin D3) 125 mcg (5,000 unit) Capsule 125 mcg PO DAILY acetaminophen 500 mg tablet 1,000 mg PO BID bisacodyl 10 mg Suppository 10 mg NJ X1 PRN (Reason: Constipation) Qty: 1 0RF finasteride 5 mg Tablet 5 mg PO DAILY Qty: 1 0RF glimepiride 2 mg Tablet 2 mg PO BREAKFAST Qty: 1 0RF Glucerna 1.2 Mihir 0.06-1.2 gram-kcal/mL Liquid 120 ml PO 4X/DAY Qty: 1 0RF Levemir FlexPen 100 unit/mL (3 mL) insulin pen 6 unit subcut QHS Qty: 15 0RF insulin lispro [Humalog KwikPen Insulin] 100 unit/mL Insulin Pen See Protocol subcut TIDAC Qty: 1 0RF Protocol: 3. Sliding Scale Insulin Med Dosing Condition: 150-189 mg/dl = 1 unit Condition: 190-229 mg/dl = 2 units Condition: 230-269 mg/dl = 3 units Condition: 270-309 mg/dl = 4 units Condition: 310-349 mg/dl = 5 units Condition: 350-399 mg/dl = 6 units Condition: 400-449 mg/dl = 7 units Condition: Greater than 449 call physician Protocol Text: - Use for Total Daily Dose of Insulin 37-55 units - Obsese, infected, or steroid patients MEDIUM DOSING ALGORITHIM magnesium hydroxide 400 mg/5 mL Suspension 30 ml PO X1 PRN (Reason: Constipation) Qty: 1 0RF menthol-zinc oxide [Calmoseptine] 0.44-20.6 % Ointment 1 applic topical BID Qty: 113 0RF Protocol: *Topical Application Instructions APPLICATION INSTRUCTIONS: Apply to buttock nystatin [Nyamyc] 100,000 unit/gram Powder 1 applic topical BID Qty: 1 0RF Protocol: *Topical Application Instructions APPLICATION INSTRUCTIONS: Apply to groin liothyronine 5 mcg tablet 5 mcg PO DAILY Primary Care Provider: Cindy Gomez Referrals: Cindy Gomez DO [Primary Care Provider] - Activity Restrictions/Additional Instructions: The patient's chest x-ray shows no pneumonia his urine sample shows no sign of infection. His COVID flu and RSV test was also negative but he does not have any signs of skin infection his abdomen is soft and he has no abdominal pain and he has no signs of infection in his throat. I feel that based on his fever and exposure he most likely has COVID which is just not crossed the threshold for our swabs to test positive. He was not incontinent in the ER as he voiced that he had to urinate and then a few minutes later was able to do so. Therefore at this time Mary providing Tylenol and or Motrin for fever control and return to the ER should you have any further concerns Disposition Disposition: Home, Self Care
--- NOTE | 2023-08-03 05:23 | ED.RN ---
Report given to fdc.
== END 2023-08-03 08:40 | disposition home or self-care (01) ==
PROVIDERS: Emergency Provider Emergency Medicine; PCP Family Medicine; Visit Provider Emergency Medicine
DX: R50.9 Fever, unspecified (principal); F03.90 Unspecified dementia, unspecified severity, without behavioral disturbance, psychotic disturbance, mood disturbance, and anxiety; E11.22 Type 2 diabetes mellitus with diabetic chronic kidney disease; N18.31 Chronic kidney disease, stage 3a; I12.9 Hypertensive chronic kidney disease with stage 1 through stage 4 chronic kidney disease, or unspecified chronic kidney disease; I25.10 Atherosclerotic heart disease of native coronary artery without angina pectoris; K21.9 Gastro-esophageal reflux disease without esophagitis; E78.2 Mixed hyperlipidemia
CPT/HCPCS: 71045; 81001; 87631; 99282

== ENCOUNTER → 2023-08-04 | Outpatient (REF) | payer MEDICARE, OTHER, SELFPAY ==
--- OUTSIDE RECORDS SUMMARY | 2023-08-04 05:14 | XMS RPT_ITS | CCD ---
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 Name Role Phone Unavailable Primary Care Provider Unavailabl e Results Test Name Value Interpretation Reference Range Facil ity Encounters Encounter Date Encounter Type Care Provider Facility Start: 09-23-2021 End: 09-23-2021 Subsequent hospital visit by physician Cindy Gomez DO Work Phone: [facility] Payers Date Payer Category Payer Unknown MMO MMO TRADITIO NAL [id number] 1997-Present [phone] [address] [place] [address] Indemnity [id number] Social History Date Type Detail Facility Tobacco smoking stat [facility] Tobacco smoking consumption unknown [facility] Start: 1935 Sex Assigned At Not on file C [facility] Clinical Note 09-23-2021 Note Date & Type [...] Metropolol, Pantoprazole, Pioglitazone, Plavix, Glyburide, Cyclobenzapr, Saw [place], CoQ10 Demographics: Age: 85Y Gender: Male Primary Language: Barbadian Preferred Language: Barbadian Screening for COVID-19 Does the patient/client present [...] anyone with a confirmed or suspected [facility] PATIENT NAME: SANTIAGO PARRA [address] Post MEDICAL REC #: [id number] [place] [address] ADMIT DATE: SERVICE DATE: 09/23/21 Occupational Therapy [...] to get himself light meals, using the toilet attendant, setting the table while assist still needed [...] work currently if asked/requested; he plays the [employer] and takes lessons weekly, he has shown his [employer] tractor for years while last time at the [facility] in 2018 or 2019 (not sure of year) Driving History: Driving for: 70 years. 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 History of Accidents: Patient [...] Patient currently without complaints of pain. [facility] PATIENT NAME: SANTIAGO PARRA [address] Post MEDICAL REC #: [id number] (more content not included)... [facility] Summary Purpose Family History No Family History Records Found Advance Directives No Advanced Directives Records Found Additional Source Comments Source Comments (unrecognize d section and content) In the event this informatio n is protected by the Federal Confidentiality of Alcohol and Drug Abuse Patient Records regulations: This information has been disclosed to you from records protected by Federal confidentiality rules (42 CFR Part 2). The Federal rules prohibit you from making any further disclosure of this
[2023-08-04 08:27] LABS: Absolute Lymphocyte Count 1.66 X10^3/uL (0.83-4.51); Absolute Neutrophil Count 3.1 X10^3/uL (2.0-7.7); Basophil# 0.03 X10^3/uL; Basophil% 0.5 % (0-1); Eosinophil# 0.46 X10^3/uL; Eosinophils% 7.7 % (0-5); Hemoglobin 9.8 g/dL (13.0-16.5); Lymphocyte # 1.66 X10^3/ul (0.83-4.51); Lymphocyte % 27.9 % (19-41); Mean Corp Hgb Conc 31.6 g/dL (32-36); Mean Corpuscular Hgb 31.1 pg (27.0-32.0); Mean Corpuscular Volume 98.4 fL (80-94); Mean Platelet Vol. 10.4 fl (6.2-12.0); Monocyte# 0.69 X10^3/uL; Monocyte% 11.6 % (0-10); NRBC Flagged by Analyzer 0 % (0-5); Platelet Count 205 K/mm3 (150-450); RBC Distribution Width CV 12.8 % (11.6-14.6); RBC Distribution Width SD 46.2 fl (35.1-43.9); Red Blood Count 3.15 M/mm3 (4.6-6.2)
[2023-08-04 08:51] LABS: Anion Gap 2 (5-15); BUN 40 mg/dL (7-18); BUN/Creat Ratio 25.5 RATIO (10-20); Calcium,Total 9.2 mg/dL (8.5-10.1); Chloride 106 mmol/L (98-107); Creatinine, Serum 1.57 mg/dL (0.70-1.30); EST Glomerular Filtration Rate 44 mL/min (>60); Est Glom Filt Rate - Afr Amer 54 mL/min (>60); Glucose 295 mg/dL (74-106); Potassium 3.8 mmol/L (3.5-5.1); Sodium Level 137 mmol/L (136-145)
== END ==
LOC: OLS.WHLTSB 05:00
PROVIDERS: PCP Family Medicine; Visit Provider Internal Medicine
DX: I10 Essential (primary) hypertension (principal)
CPT/HCPCS: 36415; 80048; 85025

== ENCOUNTER → 2023-08-10 | Outpatient (REF) | payer MEDICARE, OTHER, SELFPAY ==
--- OUTSIDE RECORDS SUMMARY | 2023-08-10 04:12 | XMS RPT_ITS | CCD ---
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 Name Role Phone Unavailable Primary Care Provider Unavailabl e Results Test Name Value Interpretation Reference Range Facil ity Encounters Encounter Date Encounter Type Care Provider Facility Start: 09-23-2021 End: 09-23-2021 Subsequent hospital visit by physician Cindy Gomez DO Work Phone: [facility] Payers Date Payer Category Payer Unknown MMO MMO TRADITIO NAL [id number] 1997-Present [phone] [address] [place] [address] Indemnity [id number] Social History Date Type Detail Facility Tobacco smoking stat [facility] Tobacco smoking consumption unknown [facility] Start: 1935 Sex Assigned At Not on file C [facility] Clinical Note 09-23-2021 Note Date & [...] Metropolol, Pantoprazole, Pioglitazone, Plavix, Glyburide, Cyclobenzapr, Saw [place], CoQ10 Demographics: Age: 85Y Gender: Male Primary Language: Tristanian Preferred Language: Tristanian Screening for COVID-19 Does the patient/client present [...] with anyone with a confirmed or suspected [facility] PATIENT NAME: SANTIAGO PARRA [address] Post MEDICAL REC #: [id number] [place] [address] ADMIT DATE: SERVICE DATE: 09/23/21 Occupational Therapy [...] to get himself light meals, using the tooth grinder, setting the table while assist still needed [...] work currently if asked/requested; he plays the [employer] and takes lessons weekly, he has shown his [employer] tractor for years while last time at the [facility] in 2018 or 2019 (not sure of year) Driving History: Driving for: 70 years. 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 History of Accidents: Patient [...] Pain: Patient currently without complaints of pain. [facility] PATIENT NAME: SANTIAGO PARRA [address] Post MEDICAL REC #: [id number] (more content not included)... [facility] Summary Purpose Family History No Family History [...] or prosecute any alcohol or drug abuse patient.[facility] (unrecognized sect ion and content) No [...] BE BASED ON THE PRIMARY CLINICAL RECORDS. [employer] [facility]. provides no warranty or guarantee of the accuracy or completeness of information in this document.
[2023-08-10 07:21] LABS: Absolute Lymphocyte Count 1.62 X10^3/uL (0.83-4.51); Absolute Neutrophil Count 2.8 X10^3/uL (2.0-7.7); Basophil# 0.03 X10^3/uL; Basophil% 0.5 % (0-1); Eosinophil# 0.48 X10^3/uL; Eosinophils% 8.7 % (0-5); Hematocrit 30.4 % (40-54); Hemoglobin 9.7 g/dL (13.0-16.5); Lymphocyte # 1.62 X10^3/ul (0.83-4.51); Lymphocyte % 29.5 % (19-41); Mean Corp Hgb Conc 31.9 g/dL (32-36); Mean Corpuscular Hgb 31.5 pg (27.0-32.0); Mean Corpuscular Volume 98.7 fL (80-94); Mean Platelet Vol. 9.9 fl (6.2-12.0); Monocyte# 0.58 X10^3/uL; Monocyte% 10.5 % (0-10); NRBC Flagged by Analyzer 0 % (0-5); Neutrophil # 2.77 X10^3/uL (2.7-7.7); Neutrophil % 50.4 % (47-70); Platelet Count 213 K/mm3 (150-450); RBC Distribution Width CV 13.1 % (11.6-14.6); Red Blood Count 3.08 M/mm3 (4.6-6.2); White Blood Count 5.5 K/mm3 (4.4-11.0)
[2023-08-10 07:39] LABS: Anion Gap 4 (5-15); BUN 50 mg/dL (7-18); BUN/Creat Ratio 33.3 RATIO (10-20); Calcium,Total 8.8 mg/dL (8.5-10.1); Chloride 110 mmol/L (98-107); EST Glomerular Filtration Rate 47 mL/min (>60); Est Glom Filt Rate - Afr Amer 57 mL/min (>60); Glucose 139 mg/dL (74-106); Sodium Level 142 mmol/L (136-145)
== END ==
LOC: OLS.WHLTSB 04:00
PROVIDERS: PCP Family Medicine; Referring Provider Internal Medicine; Visit Provider Internal Medicine
DX: I10 Essential (primary) hypertension (principal)
CPT/HCPCS: 36415; 80048; 85025

== ENCOUNTER → 2023-08-17 | Outpatient (REF) | payer MEDICARE, OTHER, SELFPAY ==
--- OUTSIDE RECORDS SUMMARY | 2023-08-17 04:17 | XMS RPT_ITS | CCD ---
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 Name Role Phone Unavailable Primary Care Provider Unavailabl e Results Test Name Value Interpretation Reference Range Facil ity Encounters Encounter Date Encounter Type Care Provider Facility Start: 09-23-2021 End: 09-23-2021 Subsequent hospital visit by physician Cindy Gomez DO Work Phone: [facility] Payers Date Payer Category Payer Unknown [employer] [id number] 1997-Present [phone] [address] [place] [address] Indemnity [id number] Social History Date Type Detail Facility Tobacco smoking stat [facility] Tobacco smoking consumption unknown [facility] Start: 1935 Sex Assigned At Not on file [facility] Clinical Note 09-23-2021 Note Date [...] Metropolol, Pantoprazole, Pioglitazone, Plavix, Glyburide, Cyclobenzapr, Saw [place], CoQ10 Demographics: Age: 85Y Gender: Male Primary Language: Belizean Preferred Language: [place]an Screening for COVID-19 Does the patient/client present [...] with anyone with a confirmed or suspected [facility] PATIENT NAME: SANTIAGO PARRA [address] 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 History of Accidents: Patient [...] Pain: Patient currently without complaints of pain. [facility] PATIENT NAME: SANTIAGO PARRA [address] [place] MEDICAL REC #: [id number] (more content not included)... [facility] Summary Purpose Family History No Family History [...] or prosecute any alcohol or drug abuse patient.[facility] (unrecognized sect ion and content) No [...] BE BASED ON THE PRIMARY CLINICAL RECORDS. [facility]. provides no warranty or guarantee of the accuracy or completeness of information in this document.
[2023-08-17 07:45] LABS: Absolute Lymphocyte Count 1.43 X10^3/uL (0.83-4.51); Absolute Neutrophil Count 2.8 X10^3/uL (2.0-7.7); Basophil# 0.04 X10^3/uL; Basophil% 0.7 % (0-1); Eosinophil# 0.47 X10^3/uL; Eosinophils% 8.6 % (0-5); Hematocrit 31.2 % (40-54); Lymphocyte # 1.43 X10^3/ul (0.83-4.51); Lymphocyte % 26.2 % (19-41); Mean Corp Hgb Conc 32.1 g/dL (32-36); Mean Corpuscular Hgb 31.3 pg (27.0-32.0); Mean Corpuscular Volume 97.5 fL (80-94); Mean Platelet Vol. 9.8 fl (6.2-12.0); Monocyte# 0.66 X10^3/uL; Monocyte% 12.1 % (0-10); NRBC Flagged by Analyzer 0 % (0-5); Neutrophil # 2.84 X10^3/uL (2.7-7.7); Neutrophil % 52.2 % (47-70); Platelet Count 222 K/mm3 (150-450); RBC Distribution Width CV 13.5 % (11.6-14.6); RBC Distribution Width SD 47.9 fl (35.1-43.9); White Blood Count 5.5 K/mm3 (4.4-11.0)
[2023-08-17 07:59] LABS: Anion Gap 4 (5-15); BUN 48 mg/dL (7-18); BUN/Creat Ratio 30.2 RATIO (10-20); Calcium,Total 8.9 mg/dL (8.5-10.1); Chloride 107 mmol/L (98-107); Creatinine, Serum 1.59 mg/dL (0.70-1.30); EST Glomerular Filtration Rate 44 mL/min (>60); Est Glom Filt Rate - Afr Amer 53 mL/min (>60); Glucose 128 mg/dL (74-106); Potassium 4.1 mmol/L (3.5-5.1); Sodium Level 140 mmol/L (136-145)
== END ==
LOC: OLS.WHLTSB 05:00
PROVIDERS: PCP Family Medicine; Visit Provider Internal Medicine
DX: I10 Essential (primary) hypertension (principal); J91.8 Pleural effusion in other conditions classified elsewhere
CPT/HCPCS: 36415; 80048; 85025

== ENCOUNTER → 2023-08-24 | Outpatient (REF) | payer MEDICARE, OTHER, SELFPAY ==
[2023-08-24 07:51] LABS: Absolute Lymphocyte Count 1.69 X10^3/uL (0.83-4.51); Absolute Neutrophil Count 3.1 X10^3/uL (2.0-7.7); Basophil# 0.03 X10^3/uL; Basophil% 0.5 % (0-1); Eosinophil# 0.57 X10^3/uL; Eosinophils% 9.2 % (0-5); Hematocrit 32.6 % (40-54); Hemoglobin 10.3 g/dL (13.0-16.5); Lymphocyte # 1.69 X10^3/ul (0.83-4.51); Lymphocyte % 27.3 % (19-41); Mean Corp Hgb Conc 31.6 g/dL (32-36); Mean Corpuscular Hgb 31.3 pg (27.0-32.0); Mean Corpuscular Volume 99.1 fL (80-94); Monocyte# 0.75 X10^3/uL; Monocyte% 12.1 % (0-10); NRBC Flagged by Analyzer 0 % (0-5); Neutrophil # 3.13 X10^3/uL (2.7-7.7); Neutrophil % 50.6 % (47-70); Platelet Count 196 K/mm3 (150-450); RBC Distribution Width CV 13.7 % (11.6-14.6); RBC Distribution Width SD 50.6 fl (35.1-43.9); Red Blood Count 3.29 M/mm3 (4.6-6.2); White Blood Count 6.2 K/mm3 (4.4-11.0)
[2023-08-24 08:00] LABS: Anion Gap 7 (5-15); BUN 58 mg/dL (7-18); BUN/Creat Ratio 33.9 RATIO (10-20); Calcium,Total 9.2 mg/dL (8.5-10.1); Chloride 108 mmol/L (98-107); Creatinine, Serum 1.71 mg/dL (0.70-1.30); EST Glomerular Filtration Rate 40 mL/min (>60); Est Glom Filt Rate - Afr Amer 49 mL/min (>60); Glucose 116 mg/dL (74-106); Potassium 4.4 mmol/L (3.5-5.1); Sodium Level 143 mmol/L (136-145)
== END ==
LOC: OLS.WHLTSB 05:00
PROVIDERS: PCP Family Medicine; Visit Provider Internal Medicine
DX: I10 Essential (primary) hypertension (principal)
CPT/HCPCS: 36415; 80048; 85025

== ENCOUNTER → 2023-08-31 | Outpatient (REF) | payer MEDICARE, OTHER, SELFPAY ==
[2023-08-31 07:38] LABS: Absolute Lymphocyte Count 1.35 X10^3/uL (0.83-4.51); Absolute Neutrophil Count 2.9 X10^3/uL (2.0-7.7); Basophil# 0.03 X10^3/uL; Basophil% 0.6 % (0-1); Eosinophil# 0.48 X10^3/uL; Eosinophils% 8.9 % (0-5); Hematocrit 32.4 % (40-54); Hemoglobin 10.4 g/dL (13.0-16.5); Lymphocyte # 1.35 X10^3/ul (0.83-4.51); Lymphocyte % 25.1 % (19-41); Mean Corp Hgb Conc 32.1 g/dL (32-36); Mean Corpuscular Hgb 31.3 pg (27.0-32.0); Mean Corpuscular Volume 97.6 fL (80-94); Mean Platelet Vol. 9.9 fl (6.2-12.0); Monocyte# 0.62 X10^3/uL; Monocyte% 11.5 % (0-10); NRBC Flagged by Analyzer 0 % (0-5); Neutrophil # 2.88 X10^3/uL (2.7-7.7); Neutrophil % 53.7 % (47-70); Platelet Count 213 K/mm3 (150-450); RBC Distribution Width CV 14.2 % (11.6-14.6); RBC Distribution Width SD 50.9 fl (35.1-43.9); Red Blood Count 3.32 M/mm3 (4.6-6.2); White Blood Count 5.4 K/mm3 (4.4-11.0)
[2023-08-31 07:52] LABS: Anion Gap 5 (5-15); BUN 48 mg/dL (7-18); BUN/Creat Ratio 32.4 RATIO (10-20); Chloride 109 mmol/L (98-107); Creatinine, Serum 1.48 mg/dL (0.70-1.30); EST Glomerular Filtration Rate 48 mL/min (>60); Est Glom Filt Rate - Afr Amer 57 mL/min (>60); Glucose 85 mg/dL (74-106); Potassium 4.3 mmol/L (3.5-5.1); Sodium Level 142 mmol/L (136-145)
== END ==
LOC: OLS.WHLTSB 04:00
PROVIDERS: PCP Family Medicine; Referring Provider Internal Medicine; Visit Provider Internal Medicine
DX: I10 Essential (primary) hypertension (principal)
CPT/HCPCS: 36415; 80048; 85025

== ENCOUNTER → 2023-09-07 | Outpatient (REF) | payer MEDICARE, OTHER, SELFPAY ==
[2023-09-07 06:21] LABS: Absolute Lymphocyte Count 1.44 X10^3/uL (0.83-4.51); Absolute Neutrophil Count 2.9 X10^3/uL (2.0-7.7); Basophil# 0.03 X10^3/uL; Basophil% 0.6 % (0-1); Eosinophil# 0.46 X10^3/uL; Eosinophils% 8.5 % (0-5); Hematocrit 29.8 % (40-54); Hemoglobin 9.3 g/dL (13.0-16.5); Lymphocyte # 1.44 X10^3/ul (0.83-4.51); Lymphocyte % 26.7 % (19-41); Mean Corp Hgb Conc 31.2 g/dL (32-36); Mean Corpuscular Hgb 30.7 pg (27.0-32.0); Mean Corpuscular Volume 98.3 fL (80-94); Mean Platelet Vol. 9.8 fl (6.2-12.0); Monocyte# 0.58 X10^3/uL; Monocyte% 10.7 % (0-10); NRBC Flagged by Analyzer 0 % (0-5); Neutrophil # 2.88 X10^3/uL (2.7-7.7); Neutrophil % 53.3 % (47-70); Platelet Count 209 K/mm3 (150-450); RBC Distribution Width CV 14.4 % (11.6-14.6); RBC Distribution Width SD 51.9 fl (35.1-43.9); Red Blood Count 3.03 M/mm3 (4.6-6.2); White Blood Count 5.4 K/mm3 (4.4-11.0)
[2023-09-07 06:37] LABS: Anion Gap 4 (5-15); BUN 57 mg/dL (7-18); BUN/Creat Ratio 36.5 RATIO (10-20); Calcium,Total 8.8 mg/dL (8.5-10.1); Chloride 112 mmol/L (98-107); Creatinine, Serum 1.56 mg/dL (0.70-1.30); EST Glomerular Filtration Rate 45 mL/min (>60); Est Glom Filt Rate - Afr Amer 54 mL/min (>60); Glucose 73 mg/dL (74-106); Potassium 4.3 mmol/L (3.5-5.1); Sodium Level 142 mmol/L (136-145)
== END ==
LOC: OLS.WHLTSB 05:00
PROVIDERS: PCP Family Medicine; Visit Provider Internal Medicine
DX: I10 Essential (primary) hypertension (principal); J91.8 Pleural effusion in other conditions classified elsewhere
CPT/HCPCS: 36415; 80048; 85025

== ENCOUNTER → 2023-09-14 | Outpatient (REF) | payer MEDICARE, OTHER, SELFPAY ==
[2023-09-14 08:27] LABS: Absolute Lymphocyte Count 1.42 X10^3/uL (0.83-4.51); Absolute Neutrophil Count 2.2 X10^3/uL (2.0-7.7); Basophil# 0.02 X10^3/uL; Basophil% 0.4 % (0-1); Eosinophil# 0.48 X10^3/uL; Eosinophils% 10.2 % (0-5); Hematocrit 30.3 % (40-54); Hemoglobin 9.8 g/dL (13.0-16.5); Lymphocyte # 1.42 X10^3/ul (0.83-4.51); Lymphocyte % 30.2 % (19-41); Mean Corp Hgb Conc 32.3 g/dL (32-36); Mean Corpuscular Hgb 31.5 pg (27.0-32.0); Mean Corpuscular Volume 97.4 fL (80-94); Mean Platelet Vol. 9.9 fl (6.2-12.0); Monocyte# 0.56 X10^3/uL; Monocyte% 11.9 % (0-10); NRBC Flagged by Analyzer 0 % (0-5); Neutrophil # 2.21 X10^3/uL (2.7-7.7); Neutrophil % 47.1 % (47-70); Platelet Count 194 K/mm3 (150-450); RBC Distribution Width CV 14.6 % (11.6-14.6); RBC Distribution Width SD 52.5 fl (35.1-43.9); Red Blood Count 3.11 M/mm3 (4.6-6.2); White Blood Count 4.7 K/mm3 (4.4-11.0)
[2023-09-14 08:37] LABS: Anion Gap 4 (5-15); BUN 61 mg/dL (7-18); BUN/Creat Ratio 36.5 RATIO (10-20); Calcium,Total 8.9 mg/dL (8.5-10.1); Chloride 111 mmol/L (98-107); Creatinine, Serum 1.67 mg/dL (0.70-1.30); EST Glomerular Filtration Rate 41 mL/min (>60); Est Glom Filt Rate - Afr Amer 50 mL/min (>60); Glucose 71 mg/dL (74-106); Potassium 4.1 mmol/L (3.5-5.1); Sodium Level 142 mmol/L (136-145)
== END ==
LOC: OLS.WHLTSB 04:00
PROVIDERS: PCP Family Medicine; Referring Provider Internal Medicine; Visit Provider Internal Medicine
DX: I10 Essential (primary) hypertension (principal)
CPT/HCPCS: 36415; 80048; 85025

== ENCOUNTER → 2023-09-21 | Outpatient (REF) | payer MEDICARE, OTHER, SELFPAY ==
[2023-09-21 06:44] LABS: Absolute Lymphocyte Count 1.48 X10^3/uL (0.83-4.51); Absolute Neutrophil Count 2.6 X10^3/uL (2.0-7.7); Basophil# 0.02 X10^3/uL; Basophil% 0.4 % (0-1); Eosinophil# 0.56 X10^3/uL; Eosinophils% 10.8 % (0-5); Hemoglobin 11.2 g/dL (13.0-16.5); Lymphocyte # 1.48 X10^3/ul (0.83-4.51); Lymphocyte % 28.6 % (19-41); Mean Corpuscular Hgb 31.5 pg (27.0-32.0); Mean Corpuscular Volume 98.6 fL (80-94); Mean Platelet Vol. 9.8 fl (6.2-12.0); Monocyte# 0.54 X10^3/uL; Monocyte% 10.4 % (0-10); NRBC Flagged by Analyzer 0 % (0-5); Neutrophil # 2.56 X10^3/uL (2.7-7.7); Neutrophil % 49.6 % (47-70); Platelet Count 221 K/mm3 (150-450); RBC Distribution Width CV 14.6 % (11.6-14.6); RBC Distribution Width SD 53.4 fl (35.1-43.9); Red Blood Count 3.55 M/mm3 (4.6-6.2); White Blood Count 5.2 K/mm3 (4.4-11.0)
[2023-09-21 06:58] LABS: Anion Gap 6 (5-15); BUN 52 mg/dL (7-18); BUN/Creat Ratio 33.1 RATIO (10-20); Calcium,Total 9.4 mg/dL (8.5-10.1); Chloride 107 mmol/L (98-107); Creatinine, Serum 1.57 mg/dL (0.70-1.30); EST Glomerular Filtration Rate 44 mL/min (>60); Est Glom Filt Rate - Afr Amer 54 mL/min (>60); Glucose 71 mg/dL (74-106); Sodium Level 140 mmol/L (136-145)
== END ==
LOC: OLS.WHLTSB 04:00
PROVIDERS: PCP Family Medicine; Referring Provider Internal Medicine; Visit Provider Internal Medicine
DX: I10 Essential (primary) hypertension (principal)
CPT/HCPCS: 36415; 80048; 85025